=== PATIENT | female | born 1990 ===

== ENCOUNTER 2023-05-09 10:30 | Outpatient (RCR) | payer OTHER, SELFPAY ==
[2023-04-07 14:36] VITALS: BMI 31.1
[2023-04-07 15:36] VITALS: BMI 31.1
== END 2023-06-13 09:34 | disposition home or self-care (01) ==
LOC: ANHDMC 10:30
PROVIDERS: PCP Internal Medicine; Visit Provider Internal Medicine
DX: E11.9 Type 2 diabetes mellitus without complications (principal); Z71.89 Other specified counseling; Z71.3 Dietary counseling and surveillance
CPT/HCPCS: 97802; G0108

== ENCOUNTER 2023-07-14 13:29 | Outpatient (CLI) | payer OTHER, SELFPAY ==
[2023-07-14 13:45] LABS: Hematocrit 37.8 % (35.0-49.0); Hemoglobin 12.3 g/dL (12.0-15.0); Immature Granulocyte Percent A 0.3 % (0.0-0.0); Lymphocytes Percent Auto 13.4 % (18.0-42.0); Mean Corpuscular HGB Conc 32.5 g/dL (32.0-36.0); Mean Corpuscular Hemoglobin 28.9 pg (27.0-31.0); Mean Corpuscular Volume 88.7 fL (78.0-102.0); Mean Platelet Volume 9.7 fl (9.2-11.8); Monocytes Percent Auto 9.3 % (2.0-11.0); Neutrophils Percent Auto 76.6 % (50.0-70.0); Platelet Count Result 345 K/mm3 (150-420); Red Blood Count 4.26 M/mm3 (4.20-5.40); Red Cell Distribution Width 11.9 % (11.6-14.4); White Blood Count 10.6 K/mm3 (4.8-10.8)
[2023-07-14 13:46] LABS: Basophils Absolute Auto 0.02 K/mm3 (0.00-0.10); Basophils Percent Auto 0.2 % (0.0-1.0); Eosinophils Absolute Auto 0.02 K/mm3 (0.02-0.50); Eosinophils Percent Auto 0.2 % (1.0-6.0); Immature Granulocyte Absolute 0.03 K/mm3 (0.00-0.00); Lymphocytes Absolute Auto 1.42 K/mm3 (1.10-4.50); Monocytes Absolute Auto 0.99 K/mm3 (0.10-0.90); Neutrophils Absolute Auto 8.2 K/mm3 (1.7-7.2)
[2023-07-14 14:04] LABS: Alanine Aminotransferase 31 U/L (14-59); Albumin Level 3.3 g/dL (3.4-5.0); Alkaline Phosphatase 91 U/L (46-116); Amylase 26 U/L (25-115); Anion Gap 8 mmol/L (8-16); Aspartate Amino Transferase 24 U/L (15-37); Bilirubin,Total 0.5 mg/dL (0.00-1.00); Blood Urea Nitrogen 8 mg/dL (7-18); Calcium 8.9 mg/dL (8.5-10.1); Carbon Dioxide 29 mmol/L (21-32); Chloride 100 mmol/L (98-108); Estimated Glomerular Filt Rate > 60; Glucose 97 mg/dL (70-99); Lipase 22 U/L (16-77); Osmolality Calculated 282 mOsm/kg (285-295); Potassium 3.7 mmol/L (3.5-5.1); Sodium 137 mmol/L (136-145); Total Protein 7.2 g/dL (6.4-8.2)
== END 2023-07-14 13:30 | disposition home or self-care (01) ==
LOC: CHSLAB 13:32
PROVIDERS: PCP Internal Medicine; Visit Provider Internal Medicine
DX: R10.9 Unspecified abdominal pain (principal)
CPT/HCPCS: 36415; 80053; 82150; 83690; 85025

== ENCOUNTER 2023-07-15 11:17 | Outpatient (CLI) | payer OTHER, SELFPAY ==
--- NOTE | ~2023-07-15 | US_ITS ---
US right upper quadrant INDICATION: Abdominal pain PROCEDURE: Realtime right upper abdominal ultrasound. COMPARISON: No prior studies for comparison. FINDINGS: The pancreas is normal without focal mass or pancreatic ductal dilation. Liver echotexture is normal without focal mass or intrahepatic biliary dilatation. There is normal directional flow i n the portal vein. There are gallbladder polyps, largest measuring measuring up to 2.1 cm which increases the risk of ga llbladder carcinoma. There is gallbladder wall thickening. Gallbladder wall measures 6.3 mm. Common b ile duct measures 5 mm. No sonographic Paige's sign. IMPRESSION: 1: Large gallbladder polyps measuring up to 2.1 cm which is associated with increased risk for malign mariana. There is gallbladder wall thickening. Reviewed, dictated and finalized at location B. IMPRESSION: 1: Large gallbladder polyps measuring up to 2.1 cm which is associated with inc reased risk for malignancy. There is gallbladder wall thickening.
== END 2023-07-15 11:18 | disposition home or self-care (01) ==
LOC: CHSIMG 11:18
PROVIDERS: PCP Internal Medicine; Visit Provider Internal Medicine
DX: R10.11 Right upper quadrant pain (principal); K82.4 Cholesterolosis of gallbladder; K82.8 Other specified diseases of gallbladder
CPT/HCPCS: 76705

== ENCOUNTER → 2023-08-19 08:17 | Outpatient (CLI) | payer OTHER, SELFPAY ==
--- NOTE | ~2023-08-19 | CT_ITS ---
EXAMINATION: CT abdomen w con DATE: 08/19/2023 08:57 INDICATION: Right upper quadrant pain TECHNIQUE: Computed tomography (CT) of the abdomen and pelvis was performed with 100 cc Omnipaque 350 intravenous contrast. The dose-length product was 336.45 mGy-cm. Automated exposure control and iter ative reconstruction technique were employed. COMPARISON: None. FINDINGS: Lung bases unremarkable. Heart size normal. No significant pleural or pericardial effusion. No lymphadenopathy. Gallbladder wall is thickened with pericholecystic fluid and gallstones. Finding s suspicious for cholecystitis. The liver, spleen, pancreas, adrenal glands and kidneys are unremarka ble. Nonobstructive bowel gas pattern. Small fat-containing umbilical hernia. No free air or free flu id. No significant vascular abnormality. No lymphadenopathy. IMPRESSION: 1. Cholelithiasis with gallbladder wall thickening and possible pericholecystic fluid, suspicious for cholecystitis. Clinically correlate. Reviewed, dictated and finalized at location B.
[2023-08-19 08:41] LABS: Estimated Glomerular Filt Rate > 60
== END ==
PROVIDERS: PCP Internal Medicine; Visit Provider Surgery
DX: R10.11 Right upper quadrant pain (principal); K80.20 Calculus of gallbladder without cholecystitis without obstruction
CPT/HCPCS: 74160; Q9967